=== PATIENT | female | born 1960 | race Caucasian/White ===

== ENCOUNTER → 2016-10-24 | Outpatient (CLI) | payer OTHER ==
[~2016-10-24] MED LIST: ACETAMINOPHEN PO; ALBUTEROL MININEB NEB; ALBUTEROL17 GM INH; ALPRAZOLAM PO; AMOXICILLIN PO; CEFTIN PO; CLARINEX5 MG PO; CLONIDINE PO; FIORICET-COD 51 EACH PO; FIORINAL 50-321 EACH PO; FLEXERIL10 MG PO; IPRAT-ALBUT 0.5-3 ML INH; LEVAQUIN PO; LIPITOR40 MG PO; LISINOPRIL PO; LISINOPRIL-HCTZ1 T19 PO; LORTAB 5-325 M1 EACH PO; MEDROL PO; NEURONTIN300 MG PO; NORCO 5/325 TAB1 TAB PO; ORUDIS75 M1 PO; OXYGEN; PREDNISONE PO; PRILOSEC PO; PROAIR HFA INH; PROAIR HFA8.5 GM INH; SERTRALINE HCL50 MG PO; SINGULAIR PO; SYMBICORT 160/4.6 G1 INH; SYMBICORT INH; ULTRAM PO; VICODIN 5/500 T1 TAB PO; Z-PACK; ZESTORETIC 20-1 EAC1 PO; ZOFRAN ODT4 MG PO
--- NOTE | ~2016-10-24 | CT16 ---
[facility] A Service of [facility] RADIOLOGY TEXT RESULTS PATIENT: TRENTON PATEL LOCATION: [facility] : 58 UNIT #: [id number] AGE: [address]: yCndie Duckworth SEX: F ORDER DR: [id number] [facility] [address] [place], [place] [address] [id number] O MR#: [id number] Acc #: [id number] NAME: TRENTON PATEL : 1960 SEX: F STUDY DATE/TIME: 10/24/2016 17:04 UNIT: [facility] ROOM: STUDY DESCRIPTION: CT Angio Chest for PE Attending Physician: Cyndie Duckworth A.P.R.N. Referring Physician: Cyndie Duckworth A.P.R.N. Ordering Physician: Cyndie Duckworth A.P.R.N. Primary Care Physician: Yahir Villafana M.D. MEDICAL IMAGING REPORT This report is preliminary unless electronic signature is present EXAM CT angiogram chest, PE protocol; dated 10/24/2016. COMPARISON Single view chest dated 02/18/2015, CT chest without contrast dated 10/24/2014. HISTORY Shortness of air since 10/20/2016. Raised D-dimer of 574. FINDINGS CT angiogram chest was obtained in the axial plane followed by sagittal and coronal reformats. This CT exam was performed with one or more of the following radiation dose reduction techniques: automatic exposure control, adjustment of mA and/or kV according to patient size, and iterative reconstruction. Main, right-left pulmonary arteries and their segmental branches do not demonstrate any filling defects to suggest pulmonary embolism. No evidence of aortic aneurysm or dissection. Mild atelectatic changes are noted in the region of the left lingula and right middle lobes without any patchy significant dense consolidation, pleural effusion or pneumothorax. No significant hilar or mediastinal lymphadenopathy is seen. Imaged upper abdomen demonstrates slight nodular appearance of bilateral adrenal glands. The left adrenal nodule measures 1.3 x 1.5 cm and has a Hounsfield unit of 56. The right adrenal gland appears to be slightly prominent measuring 2.4 x 1.4 cm. It has a triangular shape and is a part of the adrenal gland itself or even a nodule in this region cannot be excluded. The visualized gallbladder, bilateral kidneys, spleen and the hollow organs are unremarkable. Imaged base of the neck demonstrates evidence of lower cervical spine fusion. [facility] A Service of [facility] RADIOLOGY TEXT RESULTS PATIENT: TRENTON PATEL LOCATION: [facility] : 58 UNIT #: [id number] AGE: [address]: Cyndie Duckworth SEX: F ORDER DR: IMPRESSION 1. No evidence of pulmonary embolism, aortic aneurysm or dissection. 2. Minimal subsegmental atelectatic changes are noted in the left lingula and right middle lobe. 3. Left adrenal nodule measuring 1.5 x 1.3 cm with a Hounsfield unit of 56. The right adrenal gland appears slightly prominent. A possible nodule within it cannot be excluded. These are incompletely characterized on the current study. The appearance has not changed when compared to the prior study from 10/24/2014. Given the low Hounsfield units they are probably adrenal adenomas. Dictated by... Efraín Coats M.D. THIS IS AN ELECTRONICALLY VERIFIED REPORT Efraín Coats M.D. at 10/25/2016 11:33 AM BRYAN/juventino TD: 10/25/2016 00:15 JOB #: [id number] MEDICAL IMAGING REPORT Page 1 of 1 COPY
[2016-10-24 17:00] LABS: POC - CREATININE 0.86 mg/dL (0.44-1.03); POC - GFR >60.0 mL/min (>60)
== END | disposition home or self-care (01) ==
LOC: CLAB 15:33
PROVIDERS: Registered Nurse
DX: R07.9 Chest pain, unspecified (principal); R06.00 Dyspnea, unspecified; R79.1 Abnormal coagulation profile; E27.8 Other specified disorders of adrenal gland
CPT/HCPCS: 36415; 71275; 82565; 85379; Q9967

== ENCOUNTER → 2016-12-05 | Outpatient (CLI) | payer MEDICARE ==
--- NOTE | ~2016-12-05 | EKG ---
PATIENT: TRENTON PATEL UNIT #: [id number] Ventricular Rate: 73 BPM Atrial Rate: 73 BPM P-R Interval: 132 ms QRS Duration: 98 ms Q-T Interval: 378 ms QTC Calculation(Bezet): 416 ms P [place]: 44 degrees Calculated R [place]: 28 degrees Calculated T [place]: 53 degrees Diagnosis Line: Normal sinus rhythm Diagnosis Line: Normal ECG Diagnosis Line: When compared with ECG of 15-APR-2014 06:20, Diagnosis Line: No significant change was found Diagnosis Line: Confirmed by MACKENZIE BAH MD ([id number]) on Diagnosis Line: 12/05/2016 12:22:54 PM INTERPRETING MD: GABBIE
== END | disposition home or self-care (01) ==
LOC: CLAB 09:08
DX: R53.83 Other fatigue (principal)
CPT/HCPCS: 84443; 93005

== ENCOUNTER → 2016-12-05 | Outpatient (CLI) | payer OTHER ==
[~2016-12-05] VITALS: Ht 162.6 cm; Wt 90.1 kg
[2016-12-05 09:13] LABS: HEMATOCRIT 34.6 % (35.0-45.0); HEMOGLOBIN 11.5 gm/dL (12.0-16.0); MEAN CELL VOLUME 86.6 FL (83-96); MEAN CORPUSCULAR HEMOGLOBIN 28.7 PG (28-34); MEAN CORPUSCULAR HGB CONC 33.1 g/dL (30-36); MEAN PLATELET VOLUME 7.3 FL (6.5-11.5); RED CELL DISTRIBUTION WIDTH 14.6 % (11.0-15.5); WHITE BLOOD COUNT 7.9 X10e3 (4.0-10.5)
[2016-12-05 09:27] LABS: INR 0.9; PARTIAL THROMBOPLASTIN TIME 26.3 SECONDS (23.5-31.3)
[2016-12-05 09:38] LABS: BUN/CREATININE RATIO 11.66; CALCIUM SERUM 9.3 mg/dL (8.4-10.2); CREATININE SERUM 1.2 mg/dL (0.6-1.4); GLOM FILT RATE Estimated 50.1 mL/min (>60); POTASSIUM 3.8 mmol/L (3.5-5.1)
== END | disposition home or self-care (01) ==
LOC: CCVL 08:09
PROVIDERS: Internal Medicine Cardiovascular Disease
DX: I20.9 Angina pectoris, unspecified (principal); I10 Essential (primary) hypertension; E78.00 Pure hypercholesterolemia, unspecified; J44.9 Chronic obstructive pulmonary disease, unspecified
CPT/HCPCS: 36415; 80048; 84443; 85027; 85610; 85730; 93005; 99152; 99153; C1769; C1887; C1894; J1644; J2250; J3010